=== PATIENT | male | born 1960 | race African-American/Black ===

== ENCOUNTER 2017-01-05 12:05 | Inpatient (IN) | payer OTHER ==
[2017-01-05 12:20] VITALS: BMI 27.7
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
[2017-01-05] MEDS ORDERED: chlordiazePOXIDE HCL 25 MG CAPSULE PO PRN (14:26)
[2017-01-05] MEDS ORDERED: MAGNESIUM CITRATE 300 ML BOTTLE PO PRN (14:26)
[2017-01-05] MEDS ORDERED: guaiFENesin/D-METHORPHAN HB 10 ML UNIT-DOSE CUPS PO PRN (14:26)
[2017-01-05] MEDS ORDERED: MENTHOL/PHENOL 1 EACH UD MM PRN (14:26)
[2017-01-05] MEDS ORDERED: MAGNESIUM HYDROX 2400MG/30ML ORAL SUSPENSION 30 ML CUP PO PRN (14:26)
[2017-01-05] MEDS ORDERED: MAG HYDROX/AL HYDROX/SIMETH 30 ML UNIT-DOSE CUP PO PRN (14:26)
[2017-01-05] MEDS ORDERED: LOPERAMIDE HCL 2 MG CAPSULE PO PRN (14:26)
[2017-01-05] MEDS ORDERED: P-EPHED 60MG/TRIPROLIDI 2.5MG TABLET PO PRN (14:26)
[2017-01-05] MEDS ORDERED: METHADONE HCL 10 MG TABLET (FOR DETOX USE ONLY) PO ONE ×2 (14:26→23:00)
[2017-01-05] MEDS ORDERED: chlordiazePOXIDE HCL 25 MG CAPSULE PO ONE (16:00)
[2017-01-05] MEDS ORDERED: METHADONE HCL 10 MG TABLET (FOR DETOX USE ONLY) ONE (18:04)
[2017-01-05] MEDS: chlordiazePOXIDE HCL 25 MG CAPSULE PO SCH ×2 (18:36→22:59)
[2017-01-05 22:53] LABS: URINE APPEARANCE CLEAR; URINE BILIRUBIN NEGATIVE (NEGATIVE); URINE BLOOD NEGATIVE (NEGATIVE); URINE COLOR YELLOW; URINE GLUCOSE (UA) NEGATIVE (NEGATIVE); URINE KETONE NEGATIVE (NEGATIVE); URINE LEUK ESTERASE NEGATIVE (NEGATIVE); URINE NITRITE NEGATIVE (NEGATIVE); URINE PROTEIN NEGATIVE (NEGATIVE); URINE UROBILINOGEN NEGATIVE mg/dL (0.2-1.0)
[2017-01-05] MEDS: THIAMINE HCL 100 MG TABLET (FP) PO SCH (22:59)
[2017-01-06] MEDS: chlordiazePOXIDE HCL 25 MG CAPSULE PO SCH ×4 (05:39→22:59)
[2017-01-06 09:20] LABS: MCH 33.2 pg (25.7-33.7); MCHC 33.1 g/dl (32.0-35.9); MEAN CELL VOLUME 100.2 fl (80-96); PLATELET COUNT 260 K/MM3 (134-434); RDW 14.3 % (11.9-15.9); WHITE BLOOD COUNT 3.7 K/mm3 (4.0-10.0)
[2017-01-06 09:58] LABS: ALBUMIN 3.1 g/dl (3.4-5.0); ALK PHOS 71 U/L (45-117); ANION GAP 4 (8-16); BILIRUBIN,TOTAL 0.4 mg/dL (0.2-1.0); CALCIUM 8.5 mg/dL (8.5-10.1); CO2 29 mmol/L (21-32); GLUCOSE,RANDOM 93 mg/dL (74-106); SGOT/AST 19 U/L (15-37); SGPT/ALT 35 U/L (12-78); TOT PROT 6.2 g/dl (6.4-8.2)
[2017-01-06] MEDS ORDERED: METHADONE HCL 10 MG TABLET (FOR DETOX USE ONLY) PO SCH (10:00)
[2017-01-06 10:09] LABS: SICKLE CELL SCREEN NEGATIVE (NEGATIVE)
[2017-01-06] MEDS: PRENATAL VITAMINS W/ FOLIC ACID TABLET (FP) PO SCH (10:53)
--- NOTE | 2017-01-06 12:46 | PN ---
[facility] CIWA - CIWA Score Nausea/Vomitin Muscle Tremors: 3 Anxiety: 2 Agitation: 2 Paroxysmal Sweats: 1-Minimal Palms Moist Orientation: 0-Oriented Tacttile Disturbances: 1-Very Mild Itch/Numbness Auditory Disturbances: 1-Very Mild Visual Disturbances: 1-Very Mild Sensitivity Headache: 2-Mild CIWA-Ar Total Score: 16 [facility] COWS - Scale Resting Pulse: 0= [place] 80 or Below Sweatin= Chills/Flushing Restless Observation: 3= Extraneous Movement Pupil Size: 1= Pupils >than Normal Bone or Joint Aches: 2= Severe Diffuse Aches Runny Nose/ Eye Tearin= Runny Nose/Eyes GI Upset > 30mins: 2= Nausea/Diarrhea Tremor Observation of Outstretched Hands: 2= Slight Tremor Visible Yawning Observation: 1= 1-2x During Session Anxiety or Irritability: 2=Irritable/Anxious Goose Flesh Skin: 0=Smooth Skin COWS Score: 16 [facility] Progress Note (SOAP) Subjective: ALERT,IRRITABLE,ANXIOUS,INTERRUPTED SLEEP,TREMOR,PAIN IN THE BODY AND BACK Objective: 01/06/17 12:43 Vital Signs Temperature 97 F L 01/06/17 10:30 Pulse Rate 58 L 01/06/17 10:30 Respiratory Rate 16 01/06/17 10:30 Blood Pressure 104/68 01/06/17 10:30 O2 Sat by Pulse Oximetry (%) EKG NSR,INVERTED T IN V2 NO CHEST PAIN,NO SOB,NO DIZZINESS Laboratory Last Values WBC 3.7 K/mm3 (4.0-10.0) L 01/06/17 07:40 RBC 3.65 M/mm3 (4.00-5.60) L 01/06/17 07:40 Hgb 12.1 GM/dL (11.7-16.9) 01/06/17 07:40 Hct 36.6 % (35.4-49) 01/06/17 07:40 MCV 100.2 fl (80-96) H 01/06/17 07:40 MCH 33.2 pg (25.7-33.7) 01/06/17 07:40 MCHC 33.1 g/dl (32.0-35.9) 01/06/17 07:40 RDW 14.3 % (11.9-15.9) 01/06/17 07:40 Plt Count 260 K/MM3 (134-434) 01/06/17 07:40 MPV 9.0 fl (7.5-11.1) 01/06/17 07:40 Sickle Cell Screen Negative (NEGATIVE) 01/06/17 07:40 Sodium 139 mmol/L (136-145) 01/06/17 07:40 Potassium 4.2 mmol/L (3.5-5.1) 01/06/17 07:40 Chloride 106 mmol/L (98-107) 01/06/17 07:40 Carbon Dioxide 29 mmol/L (21-32) 01/06/17 07:40 Anion Gap 4 (8-16) L 01/06/17 07:40 BUN 19 mg/dL (7-18) H 01/06/17 07:40 Creatinine 1.0 mg/dL (0.7-1.3) 01/06/17 07:40 Creat Clearance w eGFR > 60 (>60) 01/06/17 07:40 Random Glucose 93 mg/dL (74-106) 01/06/17 07:40 Calcium 8.5 mg/dL (8.5-10.1) 01/06/17 07:40 Total Bilirubin 0.4 mg/dL (0.2-1.0) 01/06/17 07:40 AST 19 U/L (15-37) 01/06/17 07:40 ALT 35 U/L (12-78) 01/06/17 07:40 Alkaline Phosphatase 71 U/L (45-117) 01/06/17 07:40 Total Protein 6.2 g/dl (6.4-8.2) L 01/06/17 07:40 Albumin 3.1 g/dl (3.4-5.0) L 01/06/17 07:40 Urine Color Yellow 01/05/17 22:40 Urine Appearance Clear 01/05/17 22:40 Urine pH 5.0 (5.0-8.0) 01/05/17 22:40 Ur Specific [place] >= 1.030 (1.005-1.025) H 01/05/17 22:40 Urine Protein Negative (NEGATIVE) 01/05/17 22:40 Urine Glucose (UA) Negative (NEGATIVE) 01/05/17 22:40 Urine Ketones Negative (NEGATIVE) 01/05/17 22:40 Urine Blood Negative (NEGATIVE) 01/05/17 22:40 Urine Nitrite Negative (NEGATIVE) 01/05/17 22:40 Urine Bilirubin Negative (NEGATIVE) 01/05/17 22:40 Urine Urobilinogen Negative mg/dL (0.2-1.0) 01/05/17 22:40 Ur Leukocyte Esterase Negative (NEGATIVE) 01/05/17 22:40 Assessment: 01/06/17 12:45 WITHDRAWAL SYMPTOM Plan: ENCOURAGE ORAL FLUID
[2017-01-06 12:52] LABS: HIV 1 & 2 AB NEGATIVE; HIV 1 AGp24 NEGATIVE
[2017-01-06] MEDS: THIAMINE HCL 100 MG TABLET (FP) PO SCH (22:59)
[2017-01-07] MEDS: chlordiazePOXIDE HCL 25 MG CAPSULE PO SCH ×2 (05:22→10:31)
[2017-01-07] MEDS: METHADONE HCL 5 MG TABLET (FOR DETOX USE ONLY) PO SCH (10:31)
[2017-01-07] MEDS: PRENATAL VITAMINS W/ FOLIC ACID TABLET (FP) PO SCH (10:31)
--- NOTE | 2017-01-07 10:38 | PN ---
[facility] CIWA - CIWA Score Nausea/Vomitin-No Nausea/No Vomiting Muscle Tremors: 4-Moderate,w/Arms Extend Anxiety: 3 Agitation: 4-Moderately Restless Paroxysmal Sweats: 3 Orientation: 0-Oriented Tacttile Disturbances: 0-None Auditory Disturbances: 0-None Visual Disturbances: 0-None Headache: 0-None Present CIWA-Ar Total Score: 14 [facility] COWS - Scale Resting Pulse: 0= [place] 80 or Below Sweatin=Flushed/Facial Moisture Restless Observation: 1= Difficult to Sit Still Pupil Size: 0= Normal to Room Light Bone or Joint Aches: 2= Severe Diffuse Aches Runny Nose/ Eye Tearin= Runny Nose/Eyes GI Upset > 30mins: 1= Stomach Cramp Tremor Observation of Outstretched Hands: 2= Slight Tremor Visible Yawning Observation: 2= >3x During Session Anxiety or Irritability: 2=Irritable/Anxious Goose Flesh Skin: 0=Smooth Skin COWS Score: 14 [facility] Progress Note (SOAP) Subjective: shakes sweats interrupted sleep agitation body aches Objective: 01/07/17 10:37 Vital Signs Temperature 97.5 F L 01/07/17 10:01 Pulse Rate 65 01/07/17 10:01 Respiratory Rate 18 01/07/17 10:01 Blood Pressure 119/67 01/07/17 10:01 O2 Sat by Pulse Oximetry (%) Laboratory Tests 01/05/17 01/06/17 01/06/17 22:40 07:40 07:40 WBC 3.7 L RBC 3.65 L Hgb 12.1 Hct 36.6 MCV 100.2 H MCH 33.2 MCHC 33.1 RDW 14.3 Plt Count 260 MPV 9.0 Sickle Cell Screen Negative Sodium 139 Potassium 4.2 Chloride 106 Carbon Dioxide 29 Anion Gap 4 L BUN 19 H Creatinine 1.0 Creat Clearance w eGFR > 60 Random Glucose 93 Calcium 8.5 Total Bilirubin 0.4 AST 19 ALT 35 Alkaline Phosphatase 71 Total Protein 6.2 L Albumin 3.1 L Urine Color Yellow Urine Appearance Clear Urine pH 5.0 Ur Specific [place] >= 1.030 H Urine Protein Negative Urine Glucose (UA) Negative Urine Ketones Negative Urine Blood Negative Urine Nitrite Negative Urine Bilirubin Negative Urine Urobilinogen Negative Ur Leukocyte Esterase Negative RPR Titer HIV 1&2 Antibody Screen HIV P24 Antigen 01/06/17 01/06/17 07:40 07:40 WBC RBC Hgb Hct MCV MCH MCHC RDW Plt Count MPV Sickle Cell Screen Sodium Potassium Chloride Carbon Dioxide Anion Gap BUN Creatinine Creat Clearance w eGFR Random Glucose Calcium Total Bilirubin AST ALT Alkaline Phosphatase Total Protein Albumin Urine Color Urine Appearance Urine pH Ur Specific [place] Urine Protein Urine Glucose (UA) Urine Ketones Urine Blood Urine Nitrite Urine Bilirubin Urine Urobilinogen Ur Leukocyte Esterase RPR Titer Nonreactive HIV 1&2 Antibody Screen Negative HIV P24 Antigen Negative awake/alert ambulating no acute distress Assessment: 01/07/17 10:38 withdrawal sx Plan: continue detox increase fluids ensure bid
[2017-01-07] MEDS: ACETAMINOPHEN 325 MG TABLET (FP) PO PRN (13:50)
[2017-01-07] MEDS: chlordiazePOXIDE 5 MG CAPSULE PO SCH ×2 (17:38→22:06)
[2017-01-07] MEDS: THIAMINE HCL 100 MG TABLET (FP) PO SCH (22:06)
[2017-01-07] MEDS: diphenhydrAMINE HCL 50 MG CAPSULE PO PRN (22:06)
[2017-01-08] MEDS: chlordiazePOXIDE 5 MG CAPSULE PO SCH ×2 (05:53→10:25)
[2017-01-08] MEDS: ACETAMINOPHEN 325 MG TABLET (FP) PO PRN ×3 (05:54→14:16)
--- NOTE | 2017-01-08 10:12 | PN ---
[facility] Progress Note (SOAP) Subjective: tired sleepy sweats interrupted sleep Objective: 01/08/17 10:22 Vital Signs Temperature 97.7 F 01/08/17 06:00 Pulse Rate 71 01/08/17 06:00 Respiratory Rate 18 01/08/17 06:00 Blood Pressure 116/67 01/08/17 06:00 O2 Sat by Pulse Oximetry (%) Laboratory Tests 01/05/17 01/06/17 01/06/17 22:40 07:40 07:40 WBC 3.7 L RBC 3.65 L Hgb 12.1 Hct 36.6 MCV 100.2 H MCH 33.2 MCHC 33.1 RDW 14.3 Plt Count 260 MPV 9.0 Sickle Cell Screen Negative Sodium 139 Potassium 4.2 Chloride 106 Carbon Dioxide 29 Anion Gap 4 L BUN 19 H Creatinine 1.0 Creat Clearance w eGFR > 60 Random Glucose 93 Calcium 8.5 Total Bilirubin 0.4 AST 19 ALT 35 Alkaline Phosphatase 71 Total Protein 6.2 L Albumin 3.1 L Urine Color Yellow Urine Appearance Clear Urine pH 5.0 Ur Specific [place] >= 1.030 H Urine Protein Negative Urine Glucose (UA) Negative Urine Ketones Negative Urine Blood Negative Urine Nitrite Negative Urine Bilirubin Negative Urine Urobilinogen Negative Ur Leukocyte Esterase Negative RPR Titer HIV 1&2 Antibody Screen HIV P24 Antigen 01/06/17 01/06/17 07:40 07:40 WBC RBC Hgb Hct MCV MCH MCHC RDW Plt Count MPV Sickle Cell Screen Sodium Potassium Chloride Carbon Dioxide Anion Gap BUN Creatinine Creat Clearance w eGFR Random Glucose Calcium Total Bilirubin AST ALT Alkaline Phosphatase Total Protein Albumin Urine Color Urine Appearance Urine pH Ur Specific [place] Urine Protein Urine Glucose (UA) Urine Ketones Urine Blood Urine Nitrite Urine Bilirubin Urine Urobilinogen Ur Leukocyte Esterase RPR Titer Nonreactive HIV 1&2 Antibody Screen Negative HIV P24 Antigen Negative awake/alert ambulating no acute distress Assessment: 01/08/17 10:23 withdrawal sx Plan: continue detox increase fluids
[2017-01-08] MEDS: PRENATAL VITAMINS W/ FOLIC ACID TABLET (FP) PO SCH (10:24)
[2017-01-08] MEDS: METHADONE HCL 5 MG TABLET (FOR DETOX USE ONLY) PO SCH (10:24)
[2017-01-08] MEDS: hydrOXYzine PAMOATE 50 MG CAPSULE (FP) PO PRN (14:18)
[2017-01-08] MEDS: chlordiazePOXIDE HCL 10 MG CAPSULE PO SCH ×2 (17:11→22:17)
[2017-01-08] MEDS: THIAMINE HCL 100 MG TABLET (FP) PO SCH (22:17)
[2017-01-08] MEDS: diphenhydrAMINE HCL 50 MG CAPSULE PO PRN (22:17)
[2017-01-09] MEDS: diphenhydrAMINE HCL 50 MG CAPSULE PO PRN (01:12)
[2017-01-09] MEDS: chlordiazePOXIDE HCL 10 MG CAPSULE PO SCH ×2 (05:33→10:21)
[2017-01-09] MEDS ORDERED: METHADONE HCL 10 MG TABLET (FOR DETOX USE ONLY) PO SCH (10:00)
--- NOTE | 2017-01-09 10:03 | PN ---
[facility] Progress Note (SOAP) Subjective: sweats nasal congestion Objective: 01/09/17 10:03 Vital Signs Temperature 98.1 F 01/09/17 10:01 Pulse Rate 70 01/09/17 10:01 Respiratory Rate 18 01/09/17 10:01 Blood Pressure 112/68 01/09/17 10:01 O2 Sat by Pulse Oximetry (%) awake/alert ambulating no acute distress Assessment: 01/09/17 10:04 withdrawal sx Plan: continue detox increase fluids [place] d/c in am
[2017-01-09] MEDS ORDERED: SODIUM CHLORIDE NASAL SPRAY 44 ML BOTTLE NS PRN (10:07)
[2017-01-09] MEDS: PRENATAL VITAMINS W/ FOLIC ACID TABLET (FP) PO SCH (10:21)
[2017-01-09] MEDS: ACETAMINOPHEN 325 MG TABLET (FP) PO PRN ×2 (13:07→22:07)
--- NOTE | 2017-01-09 14:55 | EKG ---
Test Reason : Blood Pressure : / mmHG Vent. Rate : 061 BPM Atrial Rate : 061 BPM P-R Int : 168 ms QRS Dur : 092 ms QT Int : 422 ms P-R-T Axes : 004 006 009 degrees QTc Int : 424 ms NORMAL SINUS RHYTHM INCOMPLETE RIGHT BUNDLE BRANCH BLOCK SEPTAL INFARCT , AGE UNDETERMINED ABNORMAL ECG NO PREVIOUS ECGS AVAILABLE Confirmed by MADY GLEZ MD ([id number]) on 01/09/2017 2:54:44 PM Referred By: Confirmed By:MADY GLEZ MD
[2017-01-09] MEDS: hydrOXYzine PAMOATE 50 MG CAPSULE (FP) PO PRN (22:06)
[2017-01-09] MEDS: THIAMINE HCL 100 MG TABLET (FP) PO SCH (22:06)
[2017-01-10] MEDS: diphenhydrAMINE HCL 50 MG CAPSULE PO PRN (00:27)
[2017-01-10] MEDS: ACETAMINOPHEN 325 MG TABLET (FP) PO PRN (05:25)
[2017-01-10] MEDS ORDERED: METHADONE HCL 5 MG TABLET (FOR DETOX USE ONLY) PO SCH (06:00)
[2017-01-10 06:22] VITALS: BP 132/76; PULSE 64; TEMP 98
[2017-01-10] MEDS: PRENATAL VITAMINS W/ FOLIC ACID TABLET (FP) PO SCH (08:59)
--- NOTE | 2017-01-10 09:09 | DS ---
[facility] Detox Discharge Summary Admission Date: 01/05/17 Discharge Date: 01/10/17 - History Present History: Alcohol Dependence, Cannabis Dependence, Cocaine Dependence, Opioid Dependence - Physical Exam Results Vital Signs: Vital Signs Temperature 98 F 01/10/17 06:21 Pulse Rate 64 01/10/17 06:21 Respiratory Rate 18 01/10/17 06:21 Blood Pressure 132/76 01/10/17 06:21 O2 Sat by Pulse Oximetry (%) - Treatment Hospital Course: Detox Protocol Followed, Detoxed Safely, Responded well, Discharged Condition Good, Rehab Referral Accepted - Medication Discharge Medications: Ambulatory Orders NK [No Known Home Medication] 01/05/17 - Diagnosis (1) Alcohol dependence with uncomplicated withdrawal Current Visit: Yes Status: Chronic (2) Cocaine dependence Current Visit: Yes Status: Chronic Qualifiers: Substance use status: uncomplicated Qualified Code(s): F14.20 - Cocaine dependence, uncomplicated (3) History of traumatic brain injury Current Visit: Yes Status: Chronic (4) Marijuana dependence Current Visit: Yes Status: Chronic (5) Nicotine dependence Current Visit: Yes Status: Chronic Qualifiers: Nicotine product type: cigarettes (6) Opiate dependence Current Visit: Yes Status: Chronic Qualifiers: Substance use status: uncomplicated Qualified Code(s): F11.20 - Opioid dependence, uncomplicated - AMA Did Patient Leave Against Medical Advice: No
== END 2017-01-10 09:09 | disposition home or self-care (01) | DRG 773 ==
LOC: EDSEX 12:05 → YASAS 12:05 → Y6N 15:56
PROVIDERS: ADMIT Internal Medicine; ATTEND Internal Medicine
PROC: HZ2ZZZZ Detoxification Services for Substance Abuse Treatment (ICD-10-PCS; principal; 2017-01-05)
DX: F11.23 Opioid dependence with withdrawal (principal); F10.230 Alcohol dependence with withdrawal, uncomplicated; F14.20 Cocaine dependence, uncomplicated; F12.20 Cannabis dependence, uncomplicated; F17.210 Nicotine dependence, cigarettes, uncomplicated; J45.909 Unspecified asthma, uncomplicated; K21.9 Gastro-esophageal reflux disease without esophagitis; Z88.6 Allergy status to analgesic agent; Z88.0 Allergy status to penicillin; Z87.820 Personal history of traumatic brain injury
CPT/HCPCS: 36415; 71020-TC; 80053; 81003; 85027; 85660; 86593; 87389; 93005; 93010

== ENCOUNTER 2017-10-15 15:20 | Inpatient (IN) | payer OTHER ==
[2017-10-15 18:57] VITALS: BMI 27.1
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
[2017-10-15] MEDS ORDERED: LOPERAMIDE HCL 2 MG CAPSULE PO PRN (21:49)
[2017-10-15] MEDS ORDERED: guaiFENesin/D-METHORPHAN HB 10 ML UNIT-DOSE CUPS PO PRN (21:49)
[2017-10-15] MEDS ORDERED: MAGNESIUM CITRATE 300 ML BOTTLE PO PRN (21:49)
[2017-10-15] MEDS ORDERED: MAG HYDROX/AL HYDROX/SIMETH 30 ML UNIT-DOSE CUP PO PRN (21:49)
[2017-10-15] MEDS ORDERED: hydrOXYzine PAMOATE 25 MG CAPSULE (FP) PO PRN (21:49)
[2017-10-15] MEDS ORDERED: MAGNESIUM HYDROX 2400MG/30ML ORAL SUSPENSION 30 ML CUP PO PRN (21:49)
[2017-10-15] MEDS ORDERED: MENTHOL/PHENOL 1 EACH UD MM PRN (21:50)
[2017-10-15] MEDS ORDERED: P-EPHED 60MG/TRIPROLIDI 2.5MG TABLET PO PRN (21:51)
[2017-10-15] MEDS ORDERED: NICOTINE POLACRILEX 2 MG GUM BUC PRN (21:51)
[2017-10-15] MEDS ORDERED: ALBUTEROL SO4 0.083% IH SOL 2.5 MG/3 ML VIAL.NEB. NEB PRN (21:54)
[2017-10-15] MEDS ORDERED: MELATONIN 5 MG TABLETS PO PRN (22:00)
[2017-10-15] MEDS ORDERED: METHADONE HCL 10 MG TABLET (FOR DETOX USE ONLY) PO ONE ×2 (22:00→23:00)
[2017-10-15] MEDS: THIAMINE HCL 100 MG TABLET (FP) PO SCH (23:43)
[2017-10-15] MEDS: diazePAM 5 MG TABLET PO PRN (23:43)
[2017-10-16] MEDS: ACETAMINOPHEN 325 MG TABLET (FP) PO PRN (03:15)
[2017-10-16] MEDS ORDERED: METHADONE HCL 10 MG TABLET (FOR DETOX USE ONLY) PO ONE (10:00)
[2017-10-16 10:08] LABS: HEMATOCRIT 36.7 % (35.4-49); HEMOGLOBIN 12.5 GM/dL (11.7-16.9); MCH 33.7 pg (25.7-33.7); MCHC 34.1 g/dl (32.0-35.9); MEAN PLT VOLUME 8.7 fl (7.5-11.1); PLATELET COUNT 324 K/MM3 (134-434); RDW 14.8 % (11.9-15.9); WHITE BLOOD COUNT 7.6 K/mm3 (4.0-10.0)
[2017-10-16] MEDS: PRENATAL VITAMINS W/ FOLIC ACID TABLET (FP) PO SCH (10:16)
[2017-10-16] MEDS: NICOTINE 21 MG/24 HOURS TOPICAL PATCH TD SCH (10:16)
[2017-10-16] MEDS: diazePAM 5 MG TABLET PO PRN ×2 (10:16→22:22)
[2017-10-16 10:24] LABS: CHLORIDE 108 mmol/L (98-107); POTASSIUM 4.2 mmol/L (3.5-5.1); SODIUM 141 mmol/L (136-145)
--- NOTE | 2017-10-16 10:57 | PN ---
BHS COWS - Scale Resting Pulse: 0= [place] 80 or Below Sweatin= Chills/Flushing Restless Observation: 3= Extraneous Movement Pupil Size: 0= Normal to Room Light Bone or Joint Aches: 4=Acute Joint/Muscle Pain Runny Nose/ Eye Tearin= None GI Upset > 30mins: 0= None Tremor Observation of Outstretched Hands: 1= Tremor [place], Not Seen Yawning Observation: 1= 1-2x During Session Anxiety or Irritability: 2=Irritable/Anxious Goose Flesh Skin: 0=Smooth Skin COWS Score: 12 S Progress Note (SOAP) Subjective: TEARY EYES, ANXIETY,HOT/COLD CHILLS,INTERMITTENT SLLEP. CALLUSED FEET AND REQUESTING FOOT SOAK. Objective: 10/16/17 10:56 Vital Signs 10/16/17 10/16/17 10/16/17 06:13 06:30 09:29 Temperature 96.9 F L 96.5 F L Pulse Rate 56 L 56 L Respiratory 18 18 20 Rate Blood Pressure 103/60 102/59 Laboratory Tests 10/16/17 07:30 WBC 7.6 D RBC 3.70 L Hgb 12.5 Hct 36.7 MCV 99.0 H MCH 33.7 MCHC 34.1 RDW 14.8 Plt Count 324 D MPV 8.7 OTHER LABS PENDING. Assessment: 10/16/17 10:57 WITHDRAWAL SX Plan: CONTINUE DETOX WARM BETADINE SOLUTION FOOT SOAK DAILY.
[2017-10-16 11:51] LABS: ALBUMIN 3.4 g/dl (3.4-5.0); ALK PHOS 64 U/L (45-117); ANION GAP 8 (8-16); BILIRUBIN,TOTAL 0.9 mg/dL (0.2-1.0); BLOOD UREA NITROGEN 15 mg/dL (7-18); CALCIUM 8.5 mg/dL (8.5-10.1); CO2 25 mmol/L (21-32); CREATININE 0.9 mg/dL (0.7-1.3); GLUCOSE,RANDOM 85 mg/dL (74-106); SGOT/AST 9 U/L (15-37); SGPT/ALT 11 U/L (12-78); TOT PROT 6.4 g/dl (6.4-8.2)
--- NOTE | 2017-10-16 12:03 | EKG ---
Test Reason : Blood Pressure : / mmHG Vent. Rate : 056 BPM Atrial Rate : 056 BPM P-R Int : 186 ms QRS Dur : 096 ms QT Int : 398 ms P-R-T Axes : 059 031 039 degrees QTc Int : 384 ms SINUS BRADYCARDIA INCOMPLETE RIGHT BUNDLE BRANCH BLOCK BORDERLINE ECG WHEN COMPARED WITH ECG OF 05-JAN-2017 17:28, CRITERIA FOR SEPTAL INFARCT ARE NO LONGER PRESENT Confirmed by CHAIM DOHERTY, LEX ([id number]) on 10/16/2017 12:02:55 PM Referred By: Confirmed By:LEX RUCKER MD
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
[2017-10-16 17:34] LABS: URINE APPEARANCE SLCLOUDY; URINE BILIRUBIN NEGATIVE (<2.0 mg/dL); URINE COLOR YELLOW; URINE GLUCOSE (UA) NEGATIVE (NEGATIVE); URINE KETONE NEGATIVE (NEGATIVE); URINE LEUK ESTERASE NEGATIVE (NEGATIVE); URINE NITRITE NEGATIVE (NEGATIVE); URINE PROTEIN NEGATIVE (NEGATIVE)
[2017-10-16] MEDS: THIAMINE HCL 100 MG TABLET (FP) PO SCH (22:22)
[2017-10-16] MEDS: ZOLPIDEM TARTRATE 5 MG TABLET PO PRN (22:23)
[2017-10-17] MEDS ORDERED: METHADONE HCL 5 MG TABLET (FOR DETOX USE ONLY) PO ONE (10:00)
[2017-10-17] MEDS: diazePAM 5 MG TABLET PO PRN ×2 (10:12→22:11)
[2017-10-17] MEDS: PRENATAL VITAMINS W/ FOLIC ACID TABLET (FP) PO SCH (10:12)
[2017-10-17] MEDS: NICOTINE 21 MG/24 HOURS TOPICAL PATCH TD SCH (10:12)
[2017-10-17] MEDS: TOLNAFTATE 1% CREAM 15 GM TUBE TP SCH ×2 (10:13→22:11)
[2017-10-17] MEDS ORDERED: POVIDONE-IODINE 10% SOLN 118 ML BOTTLE TP ONE (12:23)
[2017-10-17] MEDS: ACETAMINOPHEN 325 MG TABLET (FP) PO PRN (14:06)
[2017-10-17] MEDS: THIAMINE HCL 100 MG TABLET (FP) PO SCH (22:12)
[2017-10-17] MEDS: ZOLPIDEM TARTRATE 5 MG TABLET PO PRN (22:13)
[2017-10-18] MEDS ORDERED: METHADONE HCL 5 MG TABLET (FOR DETOX USE ONLY) PO ONE (10:00)
[2017-10-18] MEDS: TOLNAFTATE 1% CREAM 15 GM TUBE TP SCH ×2 (10:16→22:21)
[2017-10-18] MEDS: NICOTINE 21 MG/24 HOURS TOPICAL PATCH TD SCH (10:16)
[2017-10-18] MEDS: diazePAM 5 MG TABLET PO PRN (10:16)
[2017-10-18] MEDS: PRENATAL VITAMINS W/ FOLIC ACID TABLET (FP) PO SCH (10:16)
--- NOTE | 2017-10-18 11:26 | PN ---
BHS COWS - Scale Resting Pulse: 0= [place] 80 or Below Sweatin= Chills/Flushing Restless Observation: 3= Extraneous Movement Pupil Size: 0= Normal to Room Light Bone or Joint Aches: 4=Acute Joint/Muscle Pain Runny Nose/ Eye Tearin= Nasal Congestion GI Upset > 30mins: 1= Stomach Cramp Tremor Observation of Outstretched Hands: 1= Tremor [place], Not Seen Yawning Observation: 0= None Anxiety or Irritability: 2=Irritable/Anxious Goose Flesh Skin: 0=Smooth Skin COWS Score: 13 BHS Progress Note (SOAP) Subjective: ANXIETY,IRRITABILITY,MUSCLE ACHES/SPASMS, STOMACH CRAMPS,FATIGUE. Objective: 10/18/17 11:35 Vital Signs 10/18/17 10/18/17 06:13 09:40 Temperature 96.0 F L Pulse Rate 54 L Respiratory 18 16 Rate Blood Pressure 100/68 Laboratory Tests 10/16/17 10/16/17 10/16/17 07:30 07:30 07:30 WBC 7.6 D RBC 3.70 L Hgb 12.5 Hct 36.7 MCV 99.0 H MCH 33.7 MCHC 34.1 RDW 14.8 Plt Count 324 D MPV 8.7 Sodium 141 Potassium 4.2 Chloride 108 H Carbon Dioxide 25 Anion Gap 8 BUN 15 D Creatinine 0.9 Creat Clearance w eGFR > 60 Random Glucose 85 Calcium 8.5 Total Bilirubin 0.9 D AST 9 L D ALT 11 L D Alkaline Phosphatase 64 Total Protein 6.4 Albumin 3.4 Urine Color Urine Appearance Urine pH Ur Specific [place] Urine Protein Urine Glucose (UA) Urine Ketones Urine Blood Urine Nitrite Urine Bilirubin Urine Urobilinogen Ur Leukocyte Esterase RPR Titer Nonreactive HIV 1&2 Antibody Screen HIV P24 Antigen 10/16/17 10/16/17 07:30 13:40 WBC RBC Hgb Hct MCV MCH MCHC RDW Plt Count MPV Sodium Potassium Chloride Carbon Dioxide Anion Gap BUN Creatinine Creat Clearance w eGFR Random Glucose Calcium Total Bilirubin AST ALT Alkaline Phosphatase Total Protein Albumin Urine Color Yellow Urine Appearance Slcloudy Urine pH 7.0 D Ur Specific [place] 1.029 Urine Protein Negative Urine Glucose (UA) Negative Urine Ketones Negative Urine Blood Negative Urine Nitrite Negative Urine Bilirubin Negative Urine Urobilinogen 2.0 Ur Leukocyte Esterase Negative RPR Titer HIV 1&2 Antibody Screen Negative HIV P24 Antigen Negative Assessment: 10/18/17 11:35 WITHDRAWAL SX Plan: CONTINUE DETOX
[2017-10-18] MEDS: THIAMINE HCL 100 MG TABLET (FP) PO SCH (22:20)
[2017-10-18] MEDS: ZOLPIDEM TARTRATE 5 MG TABLET PO PRN (22:21)
[2017-10-18] MEDS: ACETAMINOPHEN 325 MG TABLET (FP) PO PRN (23:00)
[2017-10-19] MEDS ORDERED: METHADONE HCL 10 MG TABLET (FOR DETOX USE ONLY) PO ONE (10:00)
[2017-10-19] MEDS: PRENATAL VITAMINS W/ FOLIC ACID TABLET (FP) PO SCH (10:25)
[2017-10-19] MEDS: POVIDONE-IODINE 10% SOLN 118 ML BOTTLE TP SCH (10:25)
[2017-10-19] MEDS: NICOTINE 21 MG/24 HOURS TOPICAL PATCH TD SCH (10:25)
[2017-10-19] MEDS: TOLNAFTATE 1% CREAM 15 GM TUBE TP SCH ×2 (10:26→22:58)
--- NOTE | 2017-10-19 16:32 | PN ---
BHS Progress Note (SOAP) Subjective: Stomach Cramping, Fatigue. Objective: PATIENT A & O X 3. NO ACUTE DISTRESS. 10/19/17 16:30 Vital Signs Temperature 96.9 F L 10/19/17 13:23 Pulse Rate 68 10/19/17 13:23 Respiratory Rate 18 10/19/17 13:23 Blood Pressure 111/78 10/19/17 13:23 O2 Sat by Pulse Oximetry (%) Laboratory Tests 10/16/17 10/16/17 10/16/17 07:30 07:30 07:30 WBC 7.6 D RBC 3.70 L Hgb 12.5 Hct 36.7 MCV 99.0 H MCH 33.7 MCHC 34.1 RDW 14.8 Plt Count 324 D MPV 8.7 Sodium 141 Potassium 4.2 Chloride 108 H Carbon Dioxide 25 Anion Gap 8 BUN 15 D Creatinine 0.9 Creat Clearance w eGFR > 60 Random Glucose 85 Calcium 8.5 Total Bilirubin 0.9 D AST 9 L D ALT 11 L D Alkaline Phosphatase 64 Total Protein 6.4 Albumin 3.4 Urine Color Urine Appearance Urine pH Ur Specific [place] Urine Protein Urine Glucose (UA) Urine Ketones Urine Blood Urine Nitrite Urine Bilirubin Urine Urobilinogen Ur Leukocyte Esterase RPR Titer Nonreactive HIV 1&2 Antibody Screen HIV P24 Antigen 10/16/17 10/16/17 07:30 13:40 WBC RBC Hgb Hct MCV MCH MCHC RDW Plt Count MPV Sodium Potassium Chloride Carbon Dioxide Anion Gap BUN Creatinine Creat Clearance w eGFR Random Glucose Calcium Total Bilirubin AST ALT Alkaline Phosphatase Total Protein Albumin Urine Color Yellow Urine Appearance Slcloudy Urine pH 7.0 D Ur Specific [place] 1.029 Urine Protein Negative Urine Glucose (UA) Negative Urine Ketones Negative Urine Blood Negative Urine Nitrite Negative Urine Bilirubin Negative Urine Urobilinogen 2.0 Ur Leukocyte Esterase Negative RPR Titer HIV 1&2 Antibody Screen Negative HIV P24 Antigen Negative LABS NOTED. Assessment: 10/19/17 16:31 WITHDRAWAL SYMPTOMS. Plan: CONTINUE DETOX.
[2017-10-19] MEDS: THIAMINE HCL 100 MG TABLET (FP) PO SCH (22:58)
[2017-10-20] MEDS: ACETAMINOPHEN 325 MG TABLET (FP) PO PRN (01:59)
[2017-10-20] MEDS ORDERED: METHADONE HCL 5 MG TABLET (FOR DETOX USE ONLY) PO ONE (06:00)
[2017-10-20 09:23] VITALS: BP 106/74; PULSE 71; TEMP 96.6
[2017-10-20] MEDS: PRENATAL VITAMINS W/ FOLIC ACID TABLET (FP) PO SCH (10:00)
[2017-10-20] MEDS: TOLNAFTATE 1% CREAM 15 GM TUBE TP SCH (10:01)
[2017-10-20] MEDS: POVIDONE-IODINE 10% SOLN 118 ML BOTTLE TP SCH (10:01)
[2017-10-20] MEDS: NICOTINE 21 MG/24 HOURS TOPICAL PATCH TD SCH (10:01)
[2017-10-20] MEDS ORDERED: METHADONE HCL 10 MG TABLET PO ONE (10:09)
[2017-10-20] MEDS ORDERED: METHADONE HCL 5 MG TABLET PO ONE (11:00)
--- NOTE | 2017-10-20 12:14 | DS ---
[facility] Detox Discharge Summary Admission Date: 10/15/17 Discharge Date: 10/20/17 - History Present History: Cannabis Dependence, Cocaine Dependence, Opioid Dependence Pertinent Past History: Anemia Asthma Chronic back pain - Physical Exam Results Vital Signs: Vital Signs Temperature 96.6 F L 10/20/17 09:22 Pulse Rate 71 10/20/17 09:22 Respiratory Rate 18 10/20/17 09:22 Blood Pressure 106/74 10/20/17 09:22 O2 Sat by Pulse Oximetry (%) Pertinent Admission Physical Exam Findings: Withdrawal symptoms Laboratory Tests 10/16/17 10/16/17 10/16/17 07:30 07:30 07:30 WBC 7.6 D RBC 3.70 L Hgb 12.5 Hct 36.7 MCV 99.0 H MCH 33.7 MCHC 34.1 RDW 14.8 Plt Count 324 D MPV 8.7 Sodium 141 Potassium 4.2 Chloride 108 H Carbon Dioxide 25 Anion Gap 8 BUN 15 D Creatinine 0.9 Creat Clearance w eGFR > 60 Random Glucose 85 Calcium 8.5 Total Bilirubin 0.9 D AST 9 L D ALT 11 L D Alkaline Phosphatase 64 Total Protein 6.4 Albumin 3.4 Urine Color Urine Appearance Urine pH Ur Specific [place] Urine Protein Urine Glucose (UA) Urine Ketones Urine Blood Urine Nitrite Urine Bilirubin Urine Urobilinogen Ur Leukocyte Esterase RPR Titer Nonreactive HIV 1&2 Antibody Screen HIV P24 Antigen 10/16/17 10/16/17 07:30 13:40 WBC RBC Hgb Hct MCV MCH MCHC RDW Plt Count MPV Sodium Potassium Chloride Carbon Dioxide Anion Gap BUN Creatinine Creat Clearance w eGFR Random Glucose Calcium Total Bilirubin AST ALT Alkaline Phosphatase Total Protein Albumin Urine Color Yellow Urine Appearance Slcloudy Urine pH 7.0 D Ur Specific [place] 1.029 Urine Protein Negative Urine Glucose (UA) Negative Urine Ketones Negative Urine Blood Negative Urine Nitrite Negative Urine Bilirubin Negative Urine Urobilinogen 2.0 Ur Leukocyte Esterase Negative RPR Titer HIV 1&2 Antibody Screen Negative HIV P24 Antigen Negative Labs reviewed - Treatment Hospital Course: Detox Protocol Followed, Detoxed Safely, Responded well, Discharged Condition Good - Medication Discharge Medications: Ambulatory Orders NK [No Known Home Medication] 10/15/17 - Diagnosis (1) Anemia Current Visit: Yes Status: Chronic (2) Back pain, chronic Current Visit: Yes Status: Chronic (3) Alcohol dependence with uncomplicated withdrawal Current Visit: Yes Status: Acute (4) Cocaine dependence Current Visit: Yes Status: Chronic Qualifiers: Substance use status: uncomplicated Qualified Code(s): F14.20 - Cocaine dependence, uncomplicated (5) Insomnia Current Visit: Yes Status: Chronic (6) Marijuana dependence Current Visit: Yes Status: Chronic (7) Nicotine dependence Current Visit: Yes Status: Chronic Qualifiers: Nicotine product type: cigarettes Substance use status: in withdrawal Qualified Code(s): F17.213 - Nicotine dependence, cigarettes, with withdrawal (8) Asthma Current Visit: Yes Status: Chronic Qualifiers: Asthma severity: mild Asthma persistence: intermittent Asthma complication type: uncomplicated Qualified Code(s): J45.20 - Mild intermittent asthma, uncomplicated - AMA Did Patient Leave Against Medical Advice: No (F/U with your PCP within 1-2 weeks )
== END 2017-10-20 12:07 | disposition home or self-care (01) | DRG 773 ==
LOC: YASAS 15:20 → Y3N 20:44
PROVIDERS: ADMIT Internal Medicine; ATTEND Internal Medicine
PROC: HZ2ZZZZ Detoxification Services for Substance Abuse Treatment (ICD-10-PCS; principal; 2017-10-15)
DX: F11.23 Opioid dependence with withdrawal (principal); F10.230 Alcohol dependence with withdrawal, uncomplicated; F14.20 Cocaine dependence, uncomplicated; F12.20 Cannabis dependence, uncomplicated; F17.213 Nicotine dependence, cigarettes, with withdrawal; F19.24 Other psychoactive substance dependence with psychoactive substance-induced mood disorder; G47.00 Insomnia, unspecified; D64.9 Anemia, unspecified
CPT/HCPCS: 36415; 80053; 81003; 85027; 86593; 87389; 93005; 93010

== ENCOUNTER 2021-08-17 11:28 | Inpatient (IN) | payer OTHER ==
[2021-08-17] MEDS ORDERED: MENTHOL/PHENOL 1 EACH UD MM PRN (12:23)
[2021-08-17] MEDS ORDERED: MAGNESIUM CITRATE 300 ML BOTTLE PO PRN (12:23)
[2021-08-17] MEDS ORDERED: cloNIDine HCL 0.1 MG TABLET PO PRN (12:23)
[2021-08-17] MEDS ORDERED: LOPERAMIDE HCL 2 MG CAPSULE PO PRN (12:23)
[2021-08-17] MEDS ORDERED: NICOTINE 10 MG CARTRIDGE (INHALER) IH PRN (12:23)
[2021-08-17] MEDS ORDERED: METHOCARBAMOL 500 MG TABLET PO PRN (12:23)
[2021-08-17] MEDS ORDERED: ONDANSETRON *ODT* 4 MG TABLET SL PRN (12:23)
[2021-08-17] MEDS ORDERED: MAG HYDROX/AL HYDROX/SIMETH 30 ML UNIT-DOSE CUP PO PRN (12:23)
[2021-08-17] MEDS ORDERED: ACETAMINOPHEN 325 MG TABLET (FP) PO PRN ×2 (12:23)
[2021-08-17] MEDS ORDERED: BISMUTH SUBSALICYLATE 524 MG/30 ML PO PRN (12:23)
[2021-08-17] MEDS ORDERED: MAGNESIUM HYDROX 2400MG/30ML ORAL SUSPENSION 30 ML CUP PO PRN (12:23)
[2021-08-17 13:34] VITALS: BMI 26.1
[2021-08-17 14:02] LABS: HEMATOCRIT 34.7 % (35.4-49); HEMOGLOBIN 11.7 GM/dL (11.7-16.9); MCHC 33.7 g/dl (32.0-35.9); MEAN PLT VOLUME 8.7 fl (7.5-11.1); PLATELET COUNT 287 10^3/uL (134-434); RBC 3.54 M/mm3 (4.00-5.60); RDW 14.6 % (11.9-15.9); WHITE BLOOD COUNT 3.3 K/mm3 (4.0-10.0)
[2021-08-17 14:10] LABS: CALCIUM 8.8 mg/dL (8.5-10.1)
[2021-08-17 14:11] LABS: ALBUMIN 3.7 g/dl (3.4-5.0)
[2021-08-17 14:14] LABS: CREATININE 0.9 mg/dL (0.55-1.3)
[2021-08-17 14:16] LABS: BILIRUBIN,TOTAL 0.5 mg/dL (0.2-1); TOT PROT 6.6 g/dl (6.4-8.2)
[2021-08-17 14:20] LABS: BLOOD UREA NITROGEN 16.8 mg/dL (7-18)
[2021-08-17] MEDS ORDERED: methaDONE HCL 10 MG TABLET (FOR DETOX USE ONLY) PO ONE (17:00)
[2021-08-17] MEDS: PRENATAL VITAMINS W/ FOLIC ACID TABLET (FP) PO SCH (17:24)
[2021-08-17] MEDS: NICOTINE 14 MG/24 HOURS TOPICAL PATCH TD SCH (17:24)
[2021-08-17] MEDS: hydrOXYzine PAMOATE 25 MG CAPSULE (FP) PO SCH ×3 (17:29→22:50)
[2021-08-17] MEDS: MELATONIN 5 MG TABLETS PO SCH (22:50)
[2021-08-17] MEDS: THIAMINE HCL 100 MG TABLET (FP) PO SCH (22:50)
[2021-08-18] MEDS: hydrOXYzine PAMOATE 25 MG CAPSULE (FP) PO SCH ×5 (07:17→22:32)
[2021-08-18] MEDS ORDERED: methaDONE HCL 10 MG TABLET (FOR DETOX USE ONLY) ONE (09:19)
[2021-08-18] MEDS: PRENATAL VITAMINS W/ FOLIC ACID TABLET (FP) PO SCH (10:48)
[2021-08-18] MEDS: NICOTINE 14 MG/24 HOURS TOPICAL PATCH TD SCH (10:53)
[2021-08-18 17:14] VITALS: BP 116/69; PULSE 58; TEMP 97.6
[2021-08-18] MEDS: MELATONIN 5 MG TABLETS PO SCH (22:31)
[2021-08-18] MEDS: THIAMINE HCL 100 MG TABLET (FP) PO SCH (22:32)
[2021-08-19] MEDS: hydrOXYzine PAMOATE 25 MG CAPSULE (FP) PO SCH (07:08)
[2021-08-19] MEDS ORDERED: methaDONE HCL 10 MG TABLET (FOR DETOX USE ONLY) PO ONE (10:00)
[2021-08-21 00:06] LABS: SARS-CoV-2 NAA Not Detected (Not Detected)
[2021-08-21] MEDS ORDERED: methaDONE HCL 10 MG TABLET (FOR DETOX USE ONLY) PO ONE (10:00)
== END 2021-08-19 09:53 | disposition left against medical advice (07) | DRG 770 ==
LOC: YASAS 11:28 → Y3N 15:56
PROVIDERS: ADMIT Allergy & Immunology; ATTEND Allergy & Immunology
PROC: HZ2ZZZZ Detoxification Services for Substance Abuse Treatment (ICD-10-PCS; principal; 2021-08-17)
DX: F11.23 Opioid dependence with withdrawal (principal); F12.20 Cannabis dependence, uncomplicated; F17.210 Nicotine dependence, cigarettes, uncomplicated; J45.20 Mild intermittent asthma, uncomplicated; Z88.0 Allergy status to penicillin; Z88.6 Allergy status to analgesic agent; Z59.00 Homelessness unspecified
CPT/HCPCS: 36415; 80053; 85027; 86780; C9803-CS; U0003; U0005